=== PATIENT | male | born 1990 | race Asian ===

== ENCOUNTER 2018-11-24 19:40 | Inpatient (IN) ==
[2018-11-24 20:53] LABS: Basophils # (auto) 0.02 K/uL (0-0.2); Basophils % (auto) 0.2 %; Eosinophils # (auto) 0.02 K/uL (0-0.5); Eosinophils % (auto) 0.2 %; Hematocrit (blood only) 41.4 % (42-52); Hemoglobin 14.6 g/dL (14.0-18.0); Immature Granulocytes # (auto) 0.02 K/uL (0.00-0.02); Immature Granulocytes % (auto) 0.2 %; Lymphocytes # (auto) 0.82 K/uL (1.2-3.4); Lymphocytes % (auto) 9.8 %; Mean Corpuscular Hgb Conc 35.3 g/dL (32-36); Mean Corpuscular Volume 88.8 fL (80-100); Mean Platelet Volume 10.6 fL (7.4-10.4); Monocytes # (auto) 0.47 K/uL (0.11-0.59); Monocytes % (auto) 5.6 %; Platelet Count 159 K/uL (130-400); RDW Coefficient of Variation 12.5 % (11.5-14.5); RDW Standard Deviation 39.9 fL (36.4-46.3); Red Blood Count 4.66 M/uL (4.7-6.1); White Blood Count 8.35 K/uL (4.8-10.8)
[2018-11-24 21:11] LABS: BUN Creatinine Ratio 25.6 (10-20); Calcium 8.8 mg/dl (8.5-10.1); Creatinine Clr Calc Pharmacy 102.6 ml/min; Est GFR (African American) 112.7; Est GFR (Non-African American) 97.3
--- NOTE | 2018-11-24 21:14 | XRay Report ---
XR foot LT min 3V routine CLINICAL HISTORY: brusing, ?fall pain COMPARISON: None. DISCUSSION: The bones and joint spaces appear intact. There is no evidence of fracture, dislocation o r bony disease. There is no evidence for soft tissue swelling. IMPRESSION: Negative study. The above report was generated using voice recognition software. It may contain grammatical, syntax or spelling errors. Electronically signed by: Evans Washington M.D. 11/24/2018 9:13 PM
--- NOTE | 2018-11-24 21:15 | XRay Report ---
XR foot RT min 3V routine CLINICAL HISTORY: brusing, ?fall pain COMPARISON: None. DISCUSSION: The bones and joint spaces appear intact. There is no evidence of fracture, dislocation o r bony disease. There is no evidence for soft tissue swelling. IMPRESSION: Negative study. The above report was generated using voice recognition software. It may contain grammatical, syntax or spelling errors. Electronically signed by: Evans Washington M.D. 11/24/2018 9:14 PM
[2018-11-24 21:22] LABS: Albumin Globulin Ratio 1.1 (0.9-2); Bilirubin,Total 1.6 mg/dl (0.2-1); Globulin 3.6 gm/dl (2.5-4.0); Total Protein 7.6 gm/dl (6.4-8.2)
[2018-11-24 21:30] LABS: Acetaminophen < 2 ug/ml (10-30); Salicylate < 1.7 mg/dl (2.8-20)
[2018-11-24 21:34] LABS: Appearance Urine Clear (Clear); Bacteria Urine Automated Negative (Negative); Blood Urine Negative (Negative); Color Urine Dark Yellow; Glucose Urine UA Negative (Negative); Leukocyte Esterase Urine Negative (Negative); Nitrite Urine Negative (Negative); Protein Urine 1+ (Negative); RBC Urine Automated 0-4 /hpf (0-4); Specific Gravity Urine 1.037 (1.000-1.030); Urobilinogen Urine Negative (Negative)
[2018-11-24 21:35] LABS: Bilirubin Urine Negative (Negative); Ictotest Urine Negative (Negative)
[2018-11-24 21:36] LABS: Ketones Urine 3+ (Negative)
[2018-11-24 21:50] LABS: Amphetamines+Metham, Urine Neg (Neg); Barbiturates, Urine Neg (Neg); Benzodiazepine, Urine Neg (Neg); Cocaine, Urine Neg (Neg); MDMA (Ecstacy), Urine Neg (Neg); Methadone, Urine Neg (Neg); Opiate, Urine Neg (Neg); Phencyclidine, Urine Neg (Neg)
--- NOTE | 2018-11-25 00:19 | Emergency Department Note ---
Entered by Celeste Sanchez acting as a scribe for History of Present Illness General Chief complaint: Mental Health Evaluation Stated complaint: MHID Source: patient Limitations: no limitations History of Present Illness Provider complaint: Mental health evaluation The patient is a 28 year old male with a history of hallucinations who presents to the Emergency Room with complaints of an episode of a mental health evaluation occurring today. Per police, the patient 's roommate reported the patient missing yesterday after he was found on the roof and in the yard wearing nothing but underwear. The police state that patient was found today in the [employer] security sergeant's home throwing things. When the police arrived on scene, the patient spoke about demons and wanting to find the Antichrist. He reportedly did not know where he was. The patient explains that he has recently "fought many wars with the Devil." He states that he believes that he is cursed because he has "made several mistakes." He notes that he initially thought the security sergeant was a good person until he learned that he was the "false prophet." The patient reports that he can hear holy angels on the clouds who are trying to guide him and defeat the devils. He states that he subsequently wanted to go to the "[facility]" but could not find it. He adds that he fell while trying to climb a string and bruised his feet. The patient notes that he feels "normal" but concedes that he might be having illusions secondary to his curse. Home Medications Home Medications Medication Instructions Recorded Confirmed Type Multi-Vitamin HP/Minerals 1 tab PO DAILY 11/13/18 11/24/18 History Allergies Allergy/AdvReac Type Severity Reaction Status Date / Time No Known Allergies Allergy Verified 11/24/18 21:52 Past Med/Surg History Medical History Hallucinations (Acute) No significant active problems No significant family history No significant medical problems No significant past medical history No significant past surgical history Social History current occupational status: student Feels Safe at Home: Declines to Answer Smoking Status: Never smoker Review of Systems See HPI for pertinent positives & negatives. and A total of 10 systems reviewed and were otherwise negative Physical Exam Vital Signs Vital Signs - 24 hr 11/24/18 19:52 Temperature 37.3 C Temperature Source Oral Sepsis Recent Fever Within 48 Hours No Sepsis New/Unexplained Change in Mental Status No Sepsis Action Taken by Nursing No Action Required Pulse Rate 94 H Respiratory Rate 20 Blood Pressure 154/91 H Blood Pressure Mean 112 Pulse Oximetry 99 Oxygen Delivery Method Room Air GENERAL: Awake, alert, sitting on litter HENT: Normocephalic, atraumatic. EYES: Normal conjunctiva. Sclera non-icteric. NECK: Supple. No nuchal rigidity. RESPIRATORY: Clear to auscultation. No wheezes. Normal respiratory effort. CARDIAC: Normal rate. Normal rhythm. Extremities warm and well perfused. GI: Soft, non-distended. No tenderness to palpation. No rebound or guarding. No masses. RECTAL: Deferred. MUSCULOSKELETAL: Atraumatic. Chest examination reveals no tenderness. There is no CVA tenderness to palpation. LOWER EXTREMITIES: Calves are equal size bilaterally and non-tender. No edema. Bruising of the bilateral feet without tenderness. NEURO: Normal sensorium. No sensory or motor deficits noted. No facial droop. PSYCH: Poor insight. Hyperreligious. Denies clear SI or HI. Flight of ideas. Occasionally staring off into space. SKIN: Warm and dry. No rash or jaundice noted. Course 2015: Past medical records reviewed. The patient was evaluated in room A6, and a complete history and physical examination were performed. 2105: I checked on the patient and updated him on his results. 2301: I signed a 302 for the patient at this time. Medical Decision Making Differential Diagnosis Differential diagnosis: Etiologies such as psychiatric disorder, infection, hypoglycemia, electrolyte abnormalities, cardiac sources, intracerebral event, toxicological process, neurologic disorder, as well as others were entertained. Medical Records Attestation: I reviewed the patient's medical records. Home Medications Current Medication List: was personally reviewed by me Laboratory Data Attestation: I reviewed the patient's lab results. Result diagrams: 11/24/18 20:36 11/24/18 20:36 Lab Results 11/24/18 11/24/18 11/24/18 Range/Units 20:36 20:36 20:36 WBC 8.35 (4.8-10.8) K/uL RBC 4.66 L (4.7-6.1) M/uL Hgb 14.6 (14.0-18.0) g/dL Hct 41.4 L (42-52) % MCV 88.8 (80-100) fL MCH 31.3 (25-34) pg MCHC 35.3 (32-36) g/dL RDW Std Deviation 39.9 (36.4-46.3) fL RDW Coeff of Aide 12.5 (11.5-14.5) % Plt Count 159 (130-400) K/uL MPV 10.6 H (7.4-10.4) fL Immature Gran % (Auto) 0.2 % Neut % (Auto) 84.0 % Lymph % (Auto) 9.8 % [place] % (Auto) 5.6 % Eos % (Auto) 0.2 % Baso % (Auto) 0.2 % Immature Gran # (Auto) 0.02 (0.00-0.02) K/uL Neut # (Auto) 7.00 H (1.4-6.5) K/uL Lymph # (Auto) 0.82 L (1.2-3.4) K/uL [place] # (Auto) 0.47 (0.11-0.59) K/uL Eos # (Auto) 0.02 (0-0.5) K/uL Baso # (Auto) 0.02 (0-0.2) K/uL Sodium 138 (136-145) mmol/L Potassium 4.0 (3.5-5.1) mmol/L Chloride 101 (98-107) mmol/L Carbon Dioxide 26 (21-32) mmol/L Anion Gap 10.0 (3-11) BUN 27 H (7-18) mg/dl Creatinine 1.04 (0.6-1.4) mg/dl Est Cr Clr Drug Dosing 102.6 ml/min Est GFR ( Amer) 112.7 Est GFR (Non-Af Amer) 97.3 BUN/Creatinine Ratio 25.6 H (10-20) Glucose 104 H (70-99) mg/dl Calcium 8.8 (8.5-10.1) mg/dl Total Bilirubin 1.6 H (0.2-1) mg/dl AST 66 H (15-37) U/L ALT 32 (12-78) U/L Alkaline Phosphatase 65 (45-117) U/L Total Protein 7.6 (6.4-8.2) gm/dl Albumin 4.0 (3.4-5.0) gm/dl Globulin 3.6 (2.5-4.0) gm/dl Albumin/Globulin Ratio 1.1 (0.9-2) TSH 1.030 (0.300-4.500) uIu/ml Urine Color Urine Appearance (Clear) Urine pH (4.5-7.5) Ur Specific [place] (1.000-1.030) Urine Protein (Negative) Urine Glucose (UA) (Negative) Urine Ketones (Negative) Urine Blood (Negative) Urine Nitrite (Negative) Urine Bilirubin (Negative) Urine Urobilinogen (Negative) Ur Leukocyte Esterase (Negative) Urine WBC (Auto) (0-5) /hpf Urine RBC (Auto) (0-4) /hpf U Hyaline Cast (Auto) (0-5) /lpf U Epithel Cells (Auto) (0-5) /lpf Urine Bacteria (Auto) (Negative) Salicylates < 1.7 L (2.8-20) mg/dl Urine Opiates Screen (Neg) Ur Methadone, Qual (Neg) Acetaminophen < 2 L (10-30) ug/ml Urine Barbiturates (Neg) Ur Phencyclidine (PCP) (Neg) U Amphetamin/Meth Scrn (Neg) MDMA (Ecstasy) Screen (Neg) U Benzodiazepines Scrn (Neg) Ur Cocaine Metabolite (Neg) U Marijuana (THC) Screen (Neg) Ethyl Alcohol mg/dL (0-3) mg/dl 11/24/18 11/24/18 11/24/18 Range/Units 20:36 21:05 21:05 WBC (4.8-10.8) K/uL RBC (4.7-6.1) M/uL Hgb (14.0-18.0) g/dL Hct (42-52) % MCV (80-100) fL MCH (25-34) pg MCHC (32-36) g/dL RDW Std Deviation (36.4-46.3) fL RDW Coeff of Aide (11.5-14.5) % Plt Count (130-400) K/uL MPV (7.4-10.4) fL Immature Gran % (Auto) % Neut % (Auto) % Lymph % (Auto) % [place] % (Auto) % Eos % (Auto) % Baso % (Auto) % Immature Gran # (Auto) (0.00-0.02) K/uL Neut # (Auto) (1.4-6.5) K/uL Lymph # (Auto) (1.2-3.4) K/uL [place] # (Auto) (0.11-0.59) K/uL Eos # (Auto) (0-0.5) K/uL Baso # (Auto) (0-0.2) K/uL Sodium (136-145) mmol/L Potassium (3.5-5.1) mmol/L Chloride (98-107) mmol/L Carbon Dioxide (21-32) mmol/L Anion Gap (3-11) BUN (7-18) mg/dl Creatinine (0.6-1.4) mg/dl Est Cr Clr Drug Dosing ml/min Est GFR ( Amer) Est GFR (Non-Af Amer) BUN/Creatinine Ratio (10-20) Glucose (70-99) mg/dl Calcium (8.5-10.1) mg/dl Total Bilirubin (0.2-1) mg/dl AST (15-37) U/L ALT (12-78) U/L Alkaline Phosphatase (45-117) U/L Total Protein (6.4-8.2) gm/dl Albumin (3.4-5.0) gm/dl Globulin (2.5-4.0) gm/dl Albumin/Globulin Ratio (0.9-2) TSH (0.300-4.500) uIu/ml Urine Color Dark Yellow Urine Appearance Clear (Clear) Urine pH 6.0 (4.5-7.5) Ur Specific [place] 1.037 H (1.000-1.030) Urine Protein 1+ H (Negative) Urine Glucose (UA) Negative (Negative) Urine Ketones 3+ H (Negative) Urine Blood Negative (Negative) Urine Nitrite Negative (Negative) Urine Bilirubin Negative (Negative) Urine Urobilinogen Negative (Negative) Ur Leukocyte Esterase Negative (Negative) Urine WBC (Auto) 1-5 (0-5) /hpf Urine RBC (Auto) 0-4 (0-4) /hpf U Hyaline Cast (Auto) 5-10 H (0-5) /lpf U Epithel Cells (Auto) 10-20 H (0-5) /lpf Urine Bacteria (Auto) Negative (Negative) Salicylates (2.8-20) mg/dl Urine Opiates Screen Neg (Neg) Ur Methadone, Qual Neg (Neg) Acetaminophen (10-30) ug/ml Urine Barbiturates Neg (Neg) Ur Phencyclidine (PCP) Neg (Neg) U Amphetamin/Meth Scrn Neg (Neg) MDMA (Ecstasy) Screen Neg (Neg) U Benzodiazepines Scrn Neg (Neg) Ur Cocaine Metabolite Neg (Neg) U Marijuana (THC) Screen Neg (Neg) Ethyl Alcohol mg/dL < 3.0 (0-3) mg/dl Imaging Data Radiologist's Impression: Radiology results as stated below per my review and the radiologist's interpretation: XR foot LT min 3V routine CLINICAL HISTORY: brusing, ?fall pain COMPARISON: None. DISCUSSION: The bones and joint spaces appear intact. There is no evidence of fracture, dislocation or bony disease. There is no evidence for soft tissue swelling. IMPRESSION: Negative study. The above report was generated using voice recognition software. It may contain grammatical, syntax or spelling errors. Electronically signed by: Evans Washington M.D. 11/24/2018 9:13 PM XR foot RT min 3V routine CLINICAL HISTORY: brusing, ?fall pain COMPARISON: None. DISCUSSION: The bones and joint spaces appear intact. There is no evidence of fracture, dislocation or bony disease. There is no evidence for soft tissue swelling. IMPRESSION: Negative study. The above report was generated using voice recognition software. It may contain grammatical, syntax or spelling errors. Electronically signed by: Evans Washington M.D. 11/24/2018 9:14 PM Blood Pressure Blood Pressure Findings: Elevated blood pressure Blood Pressure Disposition: elevated BP felt to be situational MDM Narrative Patient is a 28-year-old gentleman recently evaluated here for hyper hindu thoughts and mental health said worsening. States his hindu benjamin between the antichrist demons and angels. Evidently was reported missing by roommate yesterday and found today destroying his pastors house by the history is available. Patient himself states he was trying to climb something in does not complain of pain but does have little bit of bruising on bilateral feet. X-rays obtained basic medical clearance completed without acute findings. Patient presents with 302 petition and psych briefcase sewer assisted with evaluation. Not clearly having SI or HI but seems quite manic and believe inpatient psychiatric care is in his best interest. Patient seems to have psychosis and suad with flight of ideas and is unable to comprehend in my opinion discussion of inpatient psychiatric care. A 302 involuntary commitment was completed by myself as I believe this is in his best interest for acute psychiatric care in a locked unit. I do believe he would be in danger to be discharged. Accepted by [facility] for inpatient psychiatric care. Impression & Plan Psychosis, Manic behavior Discharge Plan Visit Data Chief Complaint: Mental Health Evaluation Stated Complaint: MHID ED Provider: Yonathan Smith Discharge Problem: Psychosis, Manic behavior Patient Disposition: Admitted As Inpatient Forms Stand Alone Forms: [employer] Prescriptions Prescriptions: No Action Multi-Vitamin HP/Minerals 1 tab PO DAILY RF: 0 Referrals Referrals: PCP,NO [Primary Care Provider] - Discharge Problem: Psychosis Qualifiers: Psychosis type: unspecified psychosis type Qualified Code(s): F29 - Unspecified psychosis not due to a substance or known physiological condition The scribe's documentation has been prepared under my direction and personally reviewed by me in its entirety. I confirm that the note above accurately reflects all work, treatment, procedures, and medical decision making performed by me.
[2018-11-25] MEDS ORDERED: BISMUTH SUBSALICYLATE PER ML OMNICELL CHARGE PO PRN (00:38)
[2018-11-25] MEDS ORDERED: SODIUM CHLORIDE 0.65% NA SOLN 45 ML (OCEAN) PRN (00:38)
[2018-11-25] MEDS ORDERED: MAGNESIUM HYDROXIDE SUSP 30 ML UDC PO PRN (00:38)
[2018-11-25] MEDS ORDERED: ACETAMINOPHEN 325 MG TAB PO PRN (00:38)
[2018-11-25] MEDS ORDERED: ALUMINUM/MAGNESIUM SUSP 30 ML UDC PO PRN (00:38)
[2018-11-25] MEDS: risperiDONE ODT 0.5 MG SOLTAB PO PRN ×2 (00:55→01:40)
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
[2018-11-25] MEDS ORDERED: HALOPERIDOL LACTATE 5 MG/ML 1 ML VIAL IM PRN (01:52)
[2018-11-25] MEDS ORDERED: LORazepam 2 MG/ML VIAL (IM USE) IM PRN (01:53)
[2018-11-25] MEDS: RISPERIDONE ODT 1MG PO SCH ×2 (10:13→10:28)
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
[2018-11-25] MEDS ORDERED: OLANZapine 10 MG/2.1 ML SDV IM PRN (11:16)
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
[2018-11-25] MEDS: OLANZAPINE 2.5 MG TAB PO SCH ×2 (13:47→20:34)
[2018-11-25] MEDS: HALOPERIDOL 5 MG TAB PO PRN ×2 (14:55→17:44)
[2018-11-25] MEDS: LORazepam 2 MG TAB PO PRN ×2 (14:59→17:44)
--- NOTE | 2018-11-26 08:21 | Psychiatric Progress Note ---
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 He is floridly psychotic, became physically aggressive shortly after admission, requiring physical hold and injectable medications. He has refused regularly scheduled oral medications, although has accepted some as needed antipsychotic medication, which appears to have been an official. He had been reported missing by his roommate, and had been engaging in erratic behavior in the community. There were reports that he had not been eating or drinking recently, with ketones in his urine, but is eating and drinking here and we will continue to monitor this. He is now on a 303 involuntary commitment, and we will start medications over objection. At this time, the patient requires inpatient mental health treatment due to the severity of his condition and the risk for harm to self and others if discharged. (1) Psychosis: 11/25 - Continue Risperdal 1 mg BID plus prns - Dr. Oviedo will see for opinion regarding meds over objection - Obtain supplemental information from patient's roommate and father - MNPR due to agitation - Contain patient in the [facility] until he can consistently demonstrate good behavioral control - Will be excused from group and individual counseling at this time - Is here on a 302. Will continue to gather information toward the need for further involuntary treatment. - Will need psychiatric aftercare. 11/26 -303 hearing held and granted. -Start olanzapine Zydis 5 mg twice daily, with olanzapine IM 10 mg as a backu p for refusal. Patient has been seen by 2 physicians, both of whom agree with medications over objection as necessary to treat his severe psychosis and mitigate his risk of harm to both himself and others. -Olanzapine IM 10 mg 3 times daily as needed psychosis or refusal of p.o. medications. -Fasting lipid profile and CMP ordered for tomorrow, for baseline on an atypical antipsychotic and follow-up on abnormal labs on admission (increased AST, total bilirubin, and BUN). -Continue private room, excused from groups and unit programming until able to demonstrate behavioral control and improved ability to reality test. -Patient made threatening statements towards his event coordinator marketing and sales, who he has implicated in his delusions, and will continue to monitor and assess to determine the duty to warn. 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 He was admitted on a 302 involuntary commitment on 11/25/18, and is on a 303 commitment as of 11/26/18. Chief Complaint "I'm tired...I hear the song, this voice". Review of Systems Sleep Information Total Hours of Sleep: 10.75 Sleep Comments: sleep hours between all three shifts. he was awake at 0330, came out to staff and was redirected back to bed/sleep(quiet room). he patted his leg/abdomen/chest in patterns. he was back to sleep in 15 min. he was awake again at 0545-he came out to the nurses station to state he wanted to go- informed he woud be meeting with his Provider this am and can talk about discharge planning. he appears anxious-doing lots of self patting. said no to prn ativan and haldol. he declined fluids. Meal Information Percent Meal Consumed - Breakfast: 75 Percent Meal Consumed - Lunch: 100 Percent Meal Consumed - Dinner: 100 Subjective Subjective Patient was seen & assessed and interval progress reviewed with Nursing and social work. Staff report he slept much of the day yesterday, at times refused medications, but other times accepted them - he took olanzapine 2.5mg x 2, haloperidol 5mg and lorazepam 2mg, and risperidone 0.5mg x 2. He told staff that his girlfriend was evil and that he was hearing voices of God, Holy Spirit, and Satan. He said the voices were telling him to go after someone, not to cooperate, and to leave the hospital. His friend contacted staff and reported that the patient's father called him, is concerned about his son, and wanted an update on his condition, but the patient refused to give permission for staff to provide any information. He was up in the middle of the night multiple times, asking to leave the hospital. On my assessment today, he reports he is hearing "the song, this voice" which he says is "angels, some say I need to, um, some are demons, some are from God, can't distinguish them." They tell him "to set fires to evil spirits," and he says there are "many ways" to do that, including "clapping my body parts." He initially says he cannot recall when he started hearing the voices, then says it was probably in Oct. He thinks they come from "the wind, sand, sometimes when I try to do something they occur." He does not think that they are a symptom of mental illness or a product of his mind, and says they "are part of a spiritual benjamin, use my body to create these voices." He does not think that he has a mental illness, needs treatment or hospitalization, or needs medication. He says if he were released from the hospital, he would not follow up as an outpatient or take medications, but would "leave [place] as soon as possible" because "they see the faces of demons and evil spirits." When asked where he would go, he says "I'm tiger warrior of the Lord, will do whatever I need to do." He initially does not answer when asked how he came to be in the hospital, but then says he went to the house of "the goat, the false prophet, they call him Shane Sanchez, but I can him the false prophet" and "threw things on the floor." He says did this because "I hear the karen's voice telling me he's the worst, I will hurt him in the final war, Domingo Mosqueda comes again. I will fight the antichrist, I will kill." He denies thoughts to harm himself, but cannot explain why he was not eating prior to admission, and says he cannot recall when he last ate (although per nursing notes, he did eat his meals yesterday). He is oriented to the year, month, state, county, town, and hospital, but not to the day, date, season, or floor of the hospital. Explained that he is here on a 302 involuntary commitment, and that a 303 hearing will be held today. Explained treatment recommendations, but patient did not appear to understand this, asking when he could get his belongings and leave the hospital. Offered to contact friends or family, which he declined. He attended his 303 hearing and testified that he was "helping holy angels defeat evil ones," and that some angels were telling him he needed to go to the false prophet's home to curse those who needed to be cursed, insult those who needed to be insulted, and the angels told him he was "the bastard son of that goat." He says he (the [employer] event coordinator marketing and sales) "looks very nice, but is a polo in mosqueda's clothes. I'm very angry, feel very not good about this, and those voices train me how to go to his home...with herbie techniques." He says the voices t old him to find the number 121, but he couldn't find it, so he "entered the home of the false prophet" and threw his belongings around, then says he can't remember what happened. He says he is ready to leave the hospital as it is not safe for him, there are evil angels here who want to defeat him and make him into the antichrist, and don't want him to become the tiger of the Lord. He says he has to rely on the voice in his spirit. Physical Exam Psychiatric Orientation: alert Oriented x 02/24 Apperance: + disheveled and appeared stated age Thin male appearing his stated age. Dressed in paper scrubs, unkempt and malodorous, with strong halitosis. Lying on a mattress in the safe room, awake, but with poor eye contact. At times CAPS and hits himself all over the body while talking. Motor Behavior: steady gait and station Speaks Lithuanian fluently, with an accent. At times there are long pauses prior to response to questions, but much less delayed than yesterday. Affect: + flat affect "Tired" Thought Process: + tangential thought process and + incoherent thought process (At times) Thought Content: + preoccupation, + paranoid (Thanks hospital staff are evil demons) and + delusions (Believes he is "the tiger of the Lord" and has to fight false prophets based on voices he is hearing of [place], demons, and God) Suicidal Thoughts: denies suicidal thoughts Homicidal Thoughts: + reports homicidal thoughts Reports thoughts to kill the false prophet, whom he identifies as a local school age program associate Hallucinations: + auditory hallucinations Cognition: language grossly intact; + recent memory not intact and + attention not intact Insight: + severely impaired insight Judgement: + severely impaired judgement Vital Signs (Past 24 Hours) Last Vital Signs Temp 36.8 C 11/25/18 00:35 Pulse 96 H 11/25/18 00:35 Resp 16 11/25/18 00:35 BP 151/89 H 11/25/18 00:35 Pulse Ox 100 11/25/18 00:35 Results & Data Current Inpatient Medications Current Inpatient Medications: Current Inpatient Medications Acetaminophen (Tylenol) 650 mg PO Q4H PRN PRN Reason: Headache or Minor Fever Stop: 12/25/18 00:37 Al Hydrox/Mg Hydrox/Simethicone (Maalox) 30 ml PO Q4H PRN PRN Reason: GI Upset Stop: 12/25/18 00:37 Bismuth Subsalicylate (Kaopectate) 15 ml PO PRN PRN PRN Reason: Loose Stool Stop: 12/25/18 00:37 Haloperidol (Haldol) 5 mg PO TID PRN PRN Reason: agitation/psychotic behavior Stop: 12/25/18 01:51 Last Admin: 11/25/18 17:44 Dose: 5 mg Documented by: Haloperidol Lactate (Haldol) 5 mg IM TID PRN PRN Reason: severe agitation/aggression Stop: 12/25/18 01:51 Last Admin: 11/25/18 02:21 Dose: 5 mg Documented by: Hydroxyzine HCl (Vistaril) 25 mg PO Q4H PRN PRN Reason: Anxiety Stop: 12/25/18 00:37 Hydroxyzine HCl (Vistaril) 50 mg PO HSZ PRN PRN Reason: Insomnia Stop: 12/25/18 00:37 Lorazepam (Ativan) 2 mg PO TID PRN PRN Reason: Anxiety/Agitation Stop: 12/25/18 01:52 Last Admin: 11/25/18 17:44 Dose: 2 mg Documented by: Magnesium Hydroxide (Milk Of Magnesia) 30 ml PO DAILY PRN PRN Reason: Heartburn Stop: 12/25/18 00:37 Olanzapine (Zyprexa) 2.5 mg PO BID MARIELA Stop: 12/25/18 11:29 Last Admin: 11/25/18 20:34 Dose: 2.5 mg Documented by: Olanzapine (Zyprexa) 10 mg IM DAILY PRN PRN Reason: psychosis Stop: 12/26/18 08:59 Risperidone (Risperdal M) 0.5 mg PO TID PRN PRN Reason: psychosis/agitation Stop: 12/25/18 00:39 Last Admin: 11/25/18 01:40 Dose: 0.5 mg Documented by: Sodium Chloride ([place] Nasal) 1 - 2 sprays NA PRN PRN PRN Reason: Nasal Dryness/Congestion Stop: 12/25/18 00:37 CPT Code CPT Code 62039 (1) Psychosis Psychosis type: unspecified psychosis type Qualified Code(s): F29 - Unspecified psychosis not due to a substance or known physiological condition
[2018-11-26] MEDS: OLANZAPINE 2.5 MG TAB PO SCH (09:18)
[2018-11-26] MEDS ORDERED: OLANZapine 10 MG/2.1 ML SDV IM PRN (10:30)
[2018-11-26] MEDS: OLANZAPINE ZYDIS 5 MG ORALLY DIS. TAB PO SCH ×2 (10:46→21:27)
[2018-11-26] MEDS: CEROVITE ADV FORMULA TAB PO SCH (10:46)
[2018-11-26] MEDS: LORazepam 2 MG TAB PO PRN (11:24)
--- NOTE | 2018-11-26 22:05 | Communication Note ---
Date of Service: November 26, 2018 Assessed patient after he required manual hold/physical restraint for IM medication over objection, as he refused to take oral medication. He was seen in the safe room with security and nursing staff present, and was able to sit up and engage. He apologized for his behavior and said that he did not want to hurt anyone, did not want God to abandon him, and was fearful of evil spirits. He stated he felt safe on the unit, even though he does not trust staff, and repeatedly stated he would not be aggressive. He said he felt he could sleep and requested to return to his room, was escorted to his room and lay down in his bed.
--- NOTE | 2018-11-27 08:20 | Psychiatric Progress Note ---
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 He had been reported missing by his roommate, and had been engaging in erratic behavior in the community. There were reports that he had not been eating or drinking recently, with ketones in his urine, but is eating and drinking here and we will continue to monitor this. He is floridly psychotic, became physically aggressive shortly after admission, requiring physical hold and injectable medications. He has refused regularly scheduled oral medications, and was placed on medications over objection after a 303 hearing on 11/26/2018. He requires inpatient mental health treatment due to the severity of his condition and the risk for harm to self and others if discharged. (1) Psychosis: 11/25 - Continue Risperdal 1 mg BID plus prns - Dr. Oviedo will see for opinion regarding meds over objection - Obtain supplemental information from patient's roommate and father - MNPR due to agitation - Contain patient in the [facility] until he can consistently demonstrate good behavioral control - Will be excused from group and individual counseling at this time - Is here on a 302. Will continue to gather information toward the need for further involuntary treatment. - Will need psychiatric aftercare. 11/26 -303 hearing held and granted. -Start olanzapine Zydis 5 mg twice daily, with olanzapine IM 10 mg as a backup for refusal. Patient has been seen by 2 physicians, both of whom agree with medications over objection as necessary to treat his severe psychosis and mitigate his risk of harm to both himself and others. -Olanzapine IM 10 mg 3 times daily as needed psychosis or refusal of p.o. medications. -Fasting lipid profile and CMP ordered for tomorrow, for baseline on an atypical antipsychotic and follow-up on abnormal labs on admission (increased AST, total bilirubin, and BUN). -Continue private room, excused from groups and unit programming until able to demonstrate behavioral control and improved ability to reality test. -Patient made threatening statements towards his adjunct psychology faculty member, who he has implicated in his delusions, and will continue to monitor and assess to determine the duty to warn. 11/27 -Increase olanzapine to 10mg bid to target psychosis, with IM back up. If additional as needed medications are needed, consider a typical antipsychotic such as chlorpromazine with sedating properties. -Fasting lipid profile and glucose for monitoring on an atypical antipsychotic: All values within normal limits. -geothermal sheet metal worker spoke to patient's father in [place], who is attempting to get an emergency visa to come to the [place]. There is a family history of schizophrenia, and the patient has reportedly had episodes of psychiatric symptoms in the past. -CMP: Repeated today to check kidney function and LFTs, as they were abnormal on admission: BUN has decreased to 22 but is still elevated, creatinine and GFR are normal, and total bilirubin has normalized. The sample was hemolyzed so AST could not be determined (was elevated at 66 on admission), and labs were not redrawn due to the patient's agitated state. 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 He was admitted on a 302 involuntary commitment on 11/25/18, and is on a 303 commitment as of 11/26/18. Chief Complaint (Patient reading aloud from the Bible with rapid speech). Review of Systems Sleep Information Total Hours of Sleep: 7.5 Sleep Comments: appeared comfortable sleeping with little positional changes Meal Information Percent Meal Consumed - Breakfast: 100 Percent Meal Consumed - Lunch: 100 Percent Meal Consumed - Dinner: 100 Subjective Subjective Patient was seen & assessed and interval progress reviewed with Treatment Team. Staff report he took his AM olanzapine yesterday after his 303 hearing, but then refused his HS dose, and required restraint to receive IM medication over objection. He was seen by this physician last night as he required restraint and was in seclusion briefly (see note). He continues to report AH of voices telling him to harm people to get out of the hospital, and belief that he is fighting a spiritual benjamin. He required staff assistance for ADLs, as he couldn't figure out how to use the sink/faucet. His father (who is in [place]) spoke with the patient on the phone and notified staff that the patient was disorganized, not making sense, and thought his family was controlled by devils. On my assessment, the patient was seen in his room, where he was initially found seated in a chair, reading aloud from a Bible, with rapid, pressured speech. He stated that he is not doing well, because he is "being attacked by evil spirits all the time," stating that they are physically, mentally, and spiritually harming him. He says they make him feel anxious, tired, and "they put me in a trap, tell me about the evil goat, false prophet, I entered his home to pull down his book case and things like that, and I was cursed by his sorcery." He says that prior to admission, the voices of the evil spirits forced him to climb a rope, fall off of it, which hurt his foot and ankle. He says that the pain is improving, and bilateral feet x-rays from the ER were normal. He talks at length about the evil spirits which he believes have put a curse on him that makes him feel badly. He says "I was supposed to become the antichrist, but I didn't because I am the chosen one of the Lord, and I will execute his judgment." He demands to be discharged and says that if we do not release him, we will be punished by the Lord. He says he does not trust anyone, other than the Lord and holy [place], as the devil is talking through other people's voices and taking over their bodies. He says he does not even trust his family, as they are members of a [employer] of [facility]. He became increasingly agitated, began staring intently at this physician without blinking, screaming "you are a liar! I know you are one of them too!" The interview was then terminated. Physical Exam Mental Examination Thin male appearing his stated age. Casually dressed in khaki pants and a button down shirt, good grooming, wearing glasses. Seated on a chair in his room, reading his Bible aloud. Intermittent eye contact, at times avoiding eye contact, other times staring intently without blinking for long periods. No abnormal movements. Speech is rapid, pressured, at times loud and yelling. Mood is "not well," and affect is restricted to paranoid, distraught and agitated. Thoughts are loose and tangential, perseverative on delusional content, with paranoid themes and delusions of persecution. He believes other people are inhabited by evil spirits which take over their voice and control their actions. He continues to endorse auditory hallucinations of [place] and devils, God, and evil spirits. Although he endorses command hallucinations to harm others, he states he does not want to act on them. He does not endorse suicidal thoughts, but reports urges to tap himself as he believes this will drive out evil spirits. He is alert and oriented to self, situation, and grossly to time. Insight and judgment are severely impaired. Vital Signs (Past 24 Hours) Last Vital Signs Temp 36.8 C 11/25/18 00:35 Pulse 102 H 11/26/18 10:51 Resp 16 11/26/18 10:51 BP 124/82 11/26/18 10:51 Pulse Ox 100 11/25/18 00:35 Results & Data Current Inpatient Medications Current Inpatient Medications: Current Inpatient Medications Acetaminophen (Tylenol) 650 mg PO Q4H PRN PRN Reason: Headache or Minor Fever Stop: 12/25/18 00:37 Last Admin: 11/26/18 16:37 Dose: 650 mg Documented by: Al Hydrox/Mg Hydrox/Simethicone (Maalox) 30 ml PO Q4H PRN PRN Reason: GI Upset Stop: 12/25/18 00:37 Bismuth Subsalicylate (Kaopectate) 15 ml PO PRN PRN PRN Reason: Loose Stool Stop: 12/25/18 00:37 Hydroxyzine HCl (Vistaril) 25 mg PO Q4H PRN PRN Reason: Anxiety Stop: 12/25/18 00:37 Hydroxyzine HCl (Vistaril) 50 mg PO HSZ PRN PRN Reason: Insomnia Stop: 12/25/18 00:37 Lorazepam (Ativan) 2 mg PO TID PRN PRN Reason: Anxiety/Agitation Stop: 12/25/18 01:52 Last Admin: 11/26/18 11:24 Dose: 2 mg Documented by: Magnesium Hydroxide (Milk Of Magnesia) 30 ml PO DAILY PRN PRN Reason: Heartburn Stop: 12/25/18 00:37 Multivitamins/Minerals (Multivitamin W/ Minerals Tab) 1 tab PO DAILY MARIELA Stop: 12/26/18 10:14 Last Admin: 11/26/18 10:46 Dose: 1 tab Documented by: Olanzapine (Zyprexa) 10 mg IM DAILY PRN PRN Reason: psychosis Stop: 12/26/18 08:59 Last Admin: 11/26/18 21:28 Dose: 10 mg Documented by: Olanzapine (Zyprexa) 10 mg IM TID PRN PRN Reason: psychosis or refusal of po med Stop: 12/26/18 10:29 Olanzapine (Zyprexa Zydis Od) 5 mg PO BID MARIELA Stop: 12/26/18 10:14 Last Admin: 11/26/18 21:27 Dose: Not Given Documented by: Sodium Chloride ([place] Nasal) 1 - 2 sprays NA PRN PRN PRN Reason: Nasal Dryness/Congestion Stop: 12/25/18 00:37 Post Discharge Appointments Therapist Name of Therapist: HELGA Orta CPT Code CPT Code 79075 (1) Psychosis Psychosis type: unspecified psychosis type Qualified Code(s): F29 - Unspecified psychosis not due to a substance or known physiological condition
[2018-11-27] MEDS ORDERED: OLANZAPINE ZYDIS 5 MG ORALLY DIS. TAB PO SCH (09:00)
[2018-11-27 09:07] LABS: Albumin Level 3.9 gm/dl (3.4-5.0); BUN Creatinine Ratio 21.4 (10-20); Calcium 9.1 mg/dl (8.5-10.1); Creatinine Clr Calc Pharmacy 106.8 ml/min; Est GFR (Non-African American) 98.4; Globulin 3.9 gm/dl (2.5-4.0); Total Protein 7.8 gm/dl (6.4-8.2)
[2018-11-27] MEDS: CEROVITE ADV FORMULA TAB PO SCH (09:54)
[2018-11-27] MEDS: OLANZAPINE ZYDIS 5 MG ORALLY DIS. TAB PO SCH ×2 (09:55→13:31)
[2018-11-27] MEDS: LORazepam 2 MG TAB PO PRN (17:46)
[2018-11-28] MEDS: OLANZAPINE ZYDIS 5 MG ORALLY DIS. TAB PO SCH ×2 (09:21→13:37)
[2018-11-28] MEDS: LORazepam 2 MG TAB PO PRN ×2 (09:21→13:39)
[2018-11-28] MEDS: CEROVITE ADV FORMULA TAB PO SCH (09:24)
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
[2018-11-28] MEDS: CHLORPROMAZINE HCL 25 MG TABLET PO PRN (13:39)
[2018-11-29] MEDS: CHLORPROMAZINE HCL 25 MG TABLET PO PRN (07:39)
[2018-11-29] MEDS: LORazepam 2 MG TAB PO PRN (07:39)
[2018-11-29] MEDS: OLANZAPINE ZYDIS 5 MG ORALLY DIS. TAB PO SCH (07:39)
[2018-11-29] MEDS: CEROVITE ADV FORMULA TAB PO SCH (07:41)
[2018-11-29] MEDS ORDERED: QUETIAPINE FUMARATE 50 MG TABCR PO SCH (13:45)
[2018-11-29] MEDS ORDERED: LORazepam 2 MG TAB PO STA (13:49)
[2018-11-29] MEDS ORDERED: QUETIAPINE FUMARATE 200 MG TAB PO STA (14:21)
[2018-11-29] MEDS ORDERED: HALOPERIDOL LACTATE 5 MG/ML 1 ML VIAL IM PRN (14:24)
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
[2018-11-29] MEDS ORDERED: CHLORPROMAZINE HCL 100 MG TABLET PO PRN (14:55)
[2018-11-29] MEDS: QUETIAPINE FUMARATE 200 MG TAB PO SCH (21:24)
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
[2018-11-30] MEDS ORDERED: LORazepam 2 MG/ML VIAL (IM USE) ONE (09:05)
[2018-11-30] MEDS: QUETIAPINE FUMARATE 200 MG TAB PO SCH ×2 (09:15→21:17)
[2018-11-30] MEDS: CEROVITE ADV FORMULA TAB PO SCH (09:16)
[2018-11-30] MEDS ORDERED: LORazepam 2 MG TAB PO PRN (09:56)
[2018-11-30] MEDS ORDERED: LORazepam 2 MG TAB PO ONE (13:32)
[2018-11-30] MEDS ORDERED: HALOPERIDOL 5 MG TAB PO ONE (13:32)
[2018-11-30] MEDS: HALOPERIDOL 5 MG TAB PO PRN (17:51)
[2018-12-01] MEDS: QUETIAPINE FUMARATE 200 MG TAB PO SCH (08:01)
[2018-12-01] MEDS: CEROVITE ADV FORMULA TAB PO SCH (08:01)
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
[2018-12-01] MEDS: LORazepam 1 MG TAB PO PRN (18:19)
[2018-12-01] MEDS: HALOPERIDOL 5 MG TAB PO PRN (18:19)
[2018-12-01] MEDS ORDERED: QUETIAPINE FUMARATE 200 MG TAB PO SCH (22:00)
[2018-12-02] MEDS: QUETIAPINE FUMARATE 200 MG TAB PO SCH ×2 (08:18→20:48)
[2018-12-02] MEDS: CEROVITE ADV FORMULA TAB PO SCH (11:54)
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
[2018-12-02] MEDS ORDERED: QUETIAPINE FUMARATE 100 MG TABLET PO SCH (14:00)
[2018-12-02] MEDS: HALOPERIDOL LACTATE 5 MG/ML 1 ML VIAL IM PRN (14:34)
[2018-12-02] MEDS: LORazepam 2 MG/ML VIAL (IM USE) IM PRN (14:36)
--- NOTE | 2018-12-02 14:41 | Communication Note ---
Date of Service: December 02, 2018 Patient refused multiple offers of his 1400 Seroquel 100 mg. Multiple staff attempted and patient provided rational for meds. He consistently refused say ing that we were trying to poison him and put satan in him. He repeatedly called the staff "jorge luis's minions" and would go back and forth between barbadian and mandarin. Security was called to assist in administering medications over objections. They too attempted to offer him the opportunity to take meds PO which he refused. At 1431 a physical hold was initiated in order to administer the IM. Hold was maintained for 86 sec, which I witnessed. Upon completion the patient was released without harm. he continued to call the staff jorge luis's minions and restarted his chanting of his single syllable word in an attempt to cisse off evil. He would not respond to my queries about his condition. He has full range of motion of all limbs as he sat up. Did not voice any pain. He sat on the edge of the bed as the staff exited the room.
[2018-12-03] MEDS: QUETIAPINE FUMARATE 200 MG TAB PO SCH ×2 (08:32→20:12)
[2018-12-03] MEDS: CEROVITE ADV FORMULA TAB PO SCH (08:32)
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
[2018-12-03] MEDS: HALOPERIDOL LACTATE 5 MG/ML 1 ML VIAL IM PRN ×2 (13:54→20:21)
[2018-12-03] MEDS: LORazepam 2 MG/ML VIAL (IM USE) IM PRN ×2 (13:55→20:21)
--- NOTE | 2018-12-03 13:57 | Communication Note ---
Date of Service: December 03, 2018 Patient again refused 1400 dose of seroquel after multiple staff encouraged him to take it PO, and so per two physician recommendations, meds were administered over objection. Two security guards and two staff members used a physical hold and the nurse administered the IM of Haldol/ativan without incident. Hold commenced at 1349 and lasted approximately one minute. He was vocal in saying that he did not want the medications. After the injection he sat in the bedside chair in no obvious distress. He refused to answer my questions about pain and repeatedly ordered me out of the room. He demonstrated full range of motion to arms and legs, moved from the bed to the chair without problems. He began speaking in Chilean after I exited and resumed his repeated verbalizations of a single syllable word.
[2018-12-03] MEDS ORDERED: QUETIAPINE FUMARATE 100 MG TABLET PO ONE (14:00)
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
[2018-12-04] MEDS ORDERED: HALOPERIDOL LACTATE 5 MG/ML 1 ML VIAL IM PRN ×2 (08:46→10:10)
[2018-12-04] MEDS: LORazepam 2 MG/ML VIAL (IM USE) IM PRN (10:02)
[2018-12-04] MEDS: QUETIAPINE FUMARATE 200 MG TAB PO SCH ×2 (10:29→16:07)
[2018-12-04] MEDS: CEROVITE ADV FORMULA TAB PO SCH (10:29)
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
[2018-12-05] MEDS: QUETIAPINE FUMARATE 200 MG TAB PO SCH ×2 (07:59→15:32)
[2018-12-05] MEDS: LORazepam 2 MG/ML VIAL (IM USE) IM PRN (08:01)
[2018-12-05] MEDS: CEROVITE ADV FORMULA TAB PO SCH (08:25)
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
[2018-12-06] MEDS ORDERED: HALOPERIDOL DECANOATE INJ 50 MG/ML VIAL IM ONE (10:45)
[2018-12-06] MEDS ORDERED: HALOPERIDOL LACTATE 5 MG/ML 1 ML VIAL IM PRN (10:47)
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
[2018-12-06] MEDS: CEROVITE ADV FORMULA TAB PO SCH (11:54)
[2018-12-06] MEDS: HALOPERIDOL 5 MG TAB PO PRN (11:55)
[2018-12-06] MEDS: QUETIAPINE FUMARATE 200 MG TAB PO SCH (11:57)
--- NOTE | 2018-12-06 19:37 | Communication Note ---
Date of Service: December 06, 2018 Patient was reevaluated by the undersigned at approximately 16:30 today and he appears to have improved considerably, presumably in response to a dose of PO haloperidol and the initiation of Haldol Decanoate 50 mg IM earlier in the day. The patient was found sitting up in bed by me this afternoon. He appeared relaxed and he seemed to be having a pleasant conversation with his father. The patient greeted me when I entered the room, referred to me as "Doctor," and smiled appropriately. 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 He asked me where I was from, originally, and he asked me how I like living in [facility] currently. And it was quite heartwarming when he smiled at his father, thanked him for coming from [place] to help him, and then turned to me and said: "I'm very rigoberto. I have the best father in the world!" No delusional material was in evidence. This is in contrast to his behaviors this morning, which included him cursing various staff members, including me, as well as his father -- and accusing us of being "Devils" and "Evil." The patient's father is being extremely helpful and supportive, and I thanked him on behalf of the entire staff for all of his efforts. The father repeated: "My son is my heart!"
[2018-12-06] MEDS: HALOPERIDOL 5 MG TAB PO SCH (21:25)
[2018-12-07] MEDS: HALOPERIDOL 5 MG TAB PO PRN (05:22)
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
[2018-12-07] MEDS: TRIHEXYPHENIDYL HCL 2 MG TAB PO SCH (08:18)
[2018-12-07] MEDS: HALOPERIDOL 5 MG TAB PO SCH ×2 (08:22→21:30)
[2018-12-07] MEDS: CEROVITE ADV FORMULA TAB PO SCH (08:23)
[2018-12-07] MEDS: LORazepam 1 MG TAB PO PRN (08:39)
[2018-12-07] MEDS ORDERED: BENZTROPINE MESYLATE 1 MG/ML 2 ML AMP IM STA (08:55)
[2018-12-07] MEDS ORDERED: BENZTROPINE MESYLATE 1 MG/ML 2 ML AMP IM PRN (10:46)
--- NOTE | 2018-12-07 11:37 | Communication Note ---
Date of Service: December 07, 2018 Assess progress and response to treatment. He is significantly improved from earlier in the week, is able to engage in appropriate conversation, smiling appropriately, no longer preoccupied with staff being minions of Satan or engaging in bizarre grunting behavior. He has been visiting with his father is here from [place]. Although he had an episode of neck stiffness yesterday, it has resolved. Continue current treatment plan, and consider an additional Haldol Decanoate injection in a few days.
[2018-12-07] MEDS: BENZTROPINE MESYLATE 1 MG TAB PO PRN (21:35)
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
[2018-12-08] MEDS: TRIHEXYPHENIDYL HCL 2 MG TAB PO SCH (08:56)
[2018-12-08] MEDS: CEROVITE ADV FORMULA TAB PO SCH (08:56)
[2018-12-08] MEDS: HALOPERIDOL 5 MG TAB PO SCH ×2 (08:56→21:10)
[2018-12-08] MEDS: BENZTROPINE MESYLATE 1 MG TAB PO PRN (08:57)
[2018-12-09] MEDS: CEROVITE ADV FORMULA TAB PO SCH (09:22)
[2018-12-09] MEDS: HALOPERIDOL 5 MG TAB PO SCH ×2 (09:22→20:46)
[2018-12-09] MEDS: TRIHEXYPHENIDYL HCL 2 MG TAB PO SCH (09:23)
[2018-12-09] MEDS: BENZTROPINE MESYLATE 1 MG TAB PO PRN ×2 (09:52→20:20)
[2018-12-09] MEDS ORDERED: PROPRANOLOL HCL 10 MG TAB PO STA (12:21)
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
[2018-12-09] MEDS ORDERED: HALOPERIDOL DECANOATE INJ 50 MG/ML VIAL IM ONE (12:43)
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
[2018-12-10] MEDS: HALOPERIDOL 5 MG TAB PO SCH (10:04)
[2018-12-10] MEDS: TRIHEXYPHENIDYL HCL 2 MG TAB PO SCH (10:05)
[2018-12-10] MEDS: CEROVITE ADV FORMULA TAB PO SCH (10:05)
[2018-12-10] MEDS: PROPRANOLOL HCL 10 MG TAB PO SCH ×2 (13:17→21:22)
[2018-12-10] MEDS ORDERED: HALOPERIDOL 5 MG TAB PO SCH (22:00)
[2018-12-11] MEDS: PROPRANOLOL HCL 10 MG TAB PO SCH ×2 (08:54→21:18)
[2018-12-11] MEDS: CEROVITE ADV FORMULA TAB PO SCH (08:54)
[2018-12-11] MEDS: BENZTROPINE MESYLATE 1 MG TAB PO PRN (09:40)
[2018-12-11] MEDS ORDERED: LORazepam 1 MG TAB PO STA (12:11)
[2018-12-11] MEDS ORDERED: LORazepam 1 MG TAB ONE (12:19)
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
[2018-12-11] MEDS ORDERED: LORazepam 1 MG TAB PO PRN (15:45)
[2018-12-11] MEDS: LORazepam 1 MG TAB PO SCH (21:18)
[2018-12-12] MEDS: CEROVITE ADV FORMULA TAB PO SCH (08:50)
[2018-12-12] MEDS: PROPRANOLOL HCL 10 MG TAB PO SCH ×2 (08:50→21:26)
[2018-12-12] MEDS: LORazepam 1 MG TAB PO SCH ×2 (08:50→21:25)
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
[2018-12-13] MEDS: PROPRANOLOL HCL 10 MG TAB PO SCH ×2 (09:01→21:09)
[2018-12-13] MEDS: CEROVITE ADV FORMULA TAB PO SCH (09:01)
[2018-12-13] MEDS: LORazepam 1 MG TAB PO SCH ×2 (09:01→21:09)
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
[2018-12-14] MEDS: LORazepam 1 MG TAB PO SCH (08:53)
[2018-12-14] MEDS: CEROVITE ADV FORMULA TAB PO SCH (08:53)
[2018-12-14] MEDS: PROPRANOLOL HCL 10 MG TAB PO SCH ×2 (08:53→21:13)
[2018-12-14] MEDS ORDERED: LORazepam 1 MG TAB PO SCH (22:00)
--- NOTE | 2018-12-15 08:28 | Discharge Summary ---
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 olanzapine to 15 mg twice daily, and add chlorpromazine 50 mg as needed for psychosis or agitation. He remains floridly psychotic with command hallucinations to harm others and has been aggressive and combative with staff. -We will change diagnosis from psychosis NOS to schizophrenia, based on presence of hallucinations, delusions, and disorganized speech for > 1 month. He was seen in the ER 11/13/2018 and endorsed delusions of persecution and auditory hallucinations for the past month. -Continue private room given severity of psychotic symptoms, delusions of persecution involving staff, command auditory hallucinations to harm others, and multiple acts of aggression/violence towards others. 11/29 -Patient does not appear to be responding favorably to olanzapine 30 mg a day. He remains motorically hyperactive, hypervigilant, and floridly psychotic. -We will discontinue olanzapine and will offer the patient a trial of Seroquel, 200 mg twice a day initially, in view of his persistent, acute symptoms that are suggestive of suad. -Haldol 5 mg IM for refusal of PO Seroquel. -Chorpromazine 200 mg BID PO PRN severe psychotic agitation 11/30 - continue seroquel and prn haldol and ativan (latter for med over objection AND for prn agitation) and titrate seroquel to mood stablizing dosing, watching dry mouth, stopped thorazine for now to limit confusion and too many med choices for prn use. 12/01 - seroquel 200mg in AM, will increase hs to 400mg watching for sedation given that he continued to require prn haldol and ativan yesterday, continue prn haldol and ativan for agitation/psychosis; continueIM haldol and ativan for medication over objection if he refuses po seroquel, vitals improved and less concern for catatonia but will monitor as he did receive prn ativan yesterday 12/02 - Add Seroquel 100 mg q 1400 - Mouth checks 12/03 -Increase quetiapine to 400 mg twice daily, with IM Haldol and Ativan for refusal. Consolidate to twice daily given patient's resistance to taking medications. Consider switch to clozapine if effective, versus ECT, although this would require referral to an outside facility and a court order as he lacks capacity to consent for the treatment. -Continue private room, excused from groups due to lack of behavioral control and acting on delusions. -Encourage patient to shower. Father traveling to the [place] sometime this week. 12/04 -Continue quetiapine 400 mg twice daily, with IM medications for refusal. Increase haloperidol to 10 mg IM for refusal, and continue lorazepam 2 mg. -It is too early to determine if quetiapine has been helpful, and additionally he has not gotten the full dose of medication due to his refusal to take oral medications. Considered other antipsychotic medications, including clozapine (would require regular oral compliance with medication and compliance for weekly blood draws), paliperidone (again would require oral compliance as no short acting IM form), risperidone (concern for orthostatic hypotension, and he is already experiencing tachycardia), or haloperidol (increased risk of negative drug reactions including dystonia and tardive dyskinesia). He would be a good ECT candidate, but we do not have that treatment modality here, and the available facilities require a patient with capacity to consent. Also discussed pursuing a 304 involuntary commitment with referral to the [facility], given the need for long-term inpatient treatment, which will need to be filed for by 12/09/2018. 12/05 - Continue current medication regimen with back-up IM medications for oral refusal - Discuss the possibility of state hospitalization with the county, as patient has shown very little progress - Planning to attempt visit with father today, but patient is far from ready for formal meeting 12/06 -Because of the ongoing concerns of the patient may be cheeking some or all of his medications, combined with our inability to reliably confirm that he is taking quetiapine, chlorpromazine, or haloperidol orally, we are discontinuing quetiapine. -Our observations that the patient does respond favorably to intramuscular haloperidol, a circumstance that may be attributable to the fact that the intramuscular dose is being delivered whereas the patient may not be actually swallowing oral dosages of medications. Accordingly, with the patient's permission, we will are starting the patient on Haldol Decanoate 50 mg intramuscularly today, and we may repeat in 3-5 days depending upon the patient's response. -We will also give the patient a standing dose of haloperidol 5 mg p.o. twice daily. As above, it may be entirely possible that the patient is discarding this medication without swallowing at, but we are hoping that as he becomes more cooperative we can more reliably expect him to actually swallow the medication. -I have reduced to the haloperidol IM injection for agitation for p.o. refusal to a dose of 5 mg every 4 hours, as needed, given the introduction of Haldol decanoate. -We are adding trihexyphenidyl 5 mg daily for possible EPS secondary to Haldol. 12/07 - Continue current medication regimen - benztropine 1mg PO/IM ordered for as needed use - trihexyphenidyl 5mg to remain as scheduled medication 12/08 - Continue current medication regimen - Begin discharge planning as tolerated, patient appearing more appropriate to at least begin discussing his plans - D/C'd safety tray and elopement precautions as patient has demonstrated several days of appropriate behavior and engagement in group programming 12/09 - Haldol decanoate 50 mg IM today - Inderal 10 mg X 1 to target akathisia. If helpful and BP tolerates, could consider DC Artane in favor of Inderal. 12/10 -Has received 2 loading doses of Haldol Decanoate, and will be due for a 100 mg dose on 01/06/2019. He is experiencing akathisia, so will decrease his oral Haldol to 5 mg at bedtime, and discontinue trihexyphenidyl in favor of propanolol 10 mg twice daily. Monitor blood pressure, but tolerated test dose yesterday without hypotension. -Continue discharge planning with social work and the patient's father, trying to decide whether he will stay here to complete his degree, or will return to [place] with father. -Would like to have him meet with his project manager finance here on the unit prior to discharge, as he was implicated in the patient's delusions and he still reports anxiety around this, while also reporting that his anglican is his primary source of support. Continue to support reality testing and a stress management skills. 12/11 - Akathisia on haldo. Ativan 1 mg NOW and if effective will order a scheduled dose - Continue other meds. 12/12 - Continue current medication regimen, including addition of lorazepam 1mg BID - Pt deny akathisia today - Would be beneficial to work with father on determining medication availability in [place], now that patient has determined he will return home following discharge 12/13 -No extraparametal symptoms are noted today. The patient tells us that he is not feeling restless, and there is no cogwheel rigidity in evidence. -The patient's father is currently currently checking with a hospital in [place] regarding the availability of the patient's current psychiatric medications. -An option would be to prescribe Haldol decanoate, possibly a 3-month supply, that could be filled in the [place] and taking with him to [place], with dosing instructions for a [place] provider. -Another option would be to convert the patient to oral haloperidol in [place], given his current level of cooperation. -We are currently anticipating discharge on Sunday or Sunday, depending on the patient's continued favorable response to treatment. 12/14 -Psychosis much improved, and EPS has resolved. Patient reports problematic sedation, so will decrease Lorazepam to 1 mg at bedtime. Continue propanolol 10 mg twice daily. -Discussed discharge planning with the patient and his father, and will send 3-month prescriptions at discharge in the hopes that he can fill them and take them with him to [place]. 12/15 -Psychosis has resolved. Continue haloperidol decanoate 100 mg every 4 weeks, next due 01/06/2019. Prescription issued for 3-month supply. -Continue propanolol 10 mg twice daily for akathisia; prescription for 3- month supply sent to his pharmacy. -Continue lorazepam 1 mg at bedtime for akathisia, anxiety, and sleep -take for 3 weeks, then discontinue. -Patient will be discharged to his father's care, and will return to [place] with him next week. They will meet with the [place] tomorrow. His father is arranging psychiatric care in [place]. Post Discharge Appointments Therapist Name of Therapist: HELGA Orta Associate Professor Of Anthropology Name of Associate Professor Of Anthropology: [facility] Phone Number for Associate Professor Of Anthropology: [phone] Date of Appointment with Associate Professor Of Anthropology: 12/16/18 Time of Appointment with Associate Professor Of Anthropology: 2pm Smoking Cessation Counseling Tobacco Cessation Medication Prescribed at Discharge: Not Applicable/Non-Smoker Discharge Plan Discharge Items Patient Disposition: Home - Self-Care Reason For Visit: PSYCHOSIS NOS Discharge Diagnosis: Schizophrenia Discharge Goals: Decrease discomfort, Improve disease control, Improve function, Learn about illness and Therapeutic intervention Activity: Per 'Additional Instructions' section Non-emergency contact: Psychiatrist and Therapist Call non-emergency contact if: you have any medication questions and your symptoms worsen Follow-up/Referrals: PCP,NO [Primary Care Provider] - Diet: Regular Addtl Provider Instructions: SPECIAL CARE INSTRUCTIONS: 1. Follow through with your scheduled aftercare appointments. If unable to keep an appointment, please call to reschedule. 2. Take your medication only as prescribed. Medication should not be changed or stopped without the approval of your doctor. In the event of worsening symptoms or concerns about side effects, contact your doctor immediately. - Take lorazepam (Ativan) 1mg at bedtime for the next 3 weeks, then stop. It is for temporary use only. - You are on a long acting injectable antipsychotic (Haldol decanoate). It is 100mg every 4 weeks. Your next injection is due 01/06/19. 3. Utilize new healthy coping skills, anger management skills, and stress management skills learned during your hospitalization. Journal feelings and process them with a support person. Identify stressors or situations that may result in relapse, deterioration or inappropriate behaviors and develop a plan to deal with those issues. 4. If your coping skills are ineffective and you are in crisis, contact your outpatient providers for direction. If unable to reach your providers, please call the CAN HELP LINE AT or go to the closest Emergency Room. 5. Avoid alcohol and un-prescribed drugs. 6. You have been provided with the Mental Health Advance Directives Pamphlet for your review. AFTERCARE APPOINTMENTS: * Please call your insurance company prior to your scheduled appointment to confirm your aftercare providers are covered. Take your insurance information to your appointments. WHO TO CALL AND WHEN: Medical Emergencies: For questions or emergencies related to your hospital stay, please contact the Inpatient Behavioral Health Unit at [phone]. A safety professional is on-call 09/04 for the Behavioral Health Unit for emergencies At any time you feel your situation is an emergency, you may also call 911 immediately. Your Doctors Instructions noted above were prepared by provider Siimn Oviedo MD. Prescriptions: New propranolol 10 mg Tablet 10 mg PO BID Qty: 180 RF: 0 lorazepam 1 mg Tablet 1 mg PO HS Qty: 21 RF: 0 haloperidol decanoate 50 mg/mL Solution 100 mg IM Q4WK Qty: 6 RF: 0 Continued Multi-Vitamin HP/Minerals 1 tab PO DAILY RF: 0 Stand-Alone Forms: [facility] Discharge Orders: Discharge Order (Routine); Ordered 12/15/18 Ordered By: Simin Oviedo Admission Data Admit Date/Time: 11/25/18 00:04 Attending Provider: Simin Oviedo Admit Provider: Alberto Goetz I Primary Care Provider: PCP,NO Other Providers: Alberto Goetz I Service: Psychiatry Other Interventions: PSY Interdisciplinary Discharge Planning Last Done: 12/15/18 09:40 Pending Studies at Discharge: No
[2018-12-15] MEDS: CEROVITE ADV FORMULA TAB PO SCH (10:13)
[2018-12-15] MEDS: PROPRANOLOL HCL 10 MG TAB PO SCH (10:13)
[2019-01-06] MEDS ORDERED: HALOPERIDOL DECANOATE INJ 50 MG/ML VIAL IM SCH (08:00)
== END 2018-12-15 13:45 | disposition home or self-care (01) | DRG 885 ==
LOC: ED 19:40 → 3S 11-25 00:04